=== PATIENT | male | born 1960 | race Caucasian/White ===

== ENCOUNTER 2019-05-31 09:51 | Emergency (ER) | payer SELFPAY ==
[2019-05-31] MEDS ORDERED: HYDROCODONE/APAP 10/325 TAB ONE (10:45)
[2019-05-31] MEDS ORDERED: CEFAZOLIN SODIUM 1 GM/VIAL ONE (10:45)
[2019-05-31] MEDS ORDERED: TETANUS & DIPHTHERIA TOX,ADULT 0.5 ML VIAL ONE (10:46)
[2019-05-31] MEDS ORDERED: WATER FOR INJ,STERILE 10 ML ONE (10:46)
[2019-05-31] MEDS ORDERED: LIDOCAINE 1% MPF 5 ML VIAL ONE (10:52)
--- NOTE | 2019-05-31 11:06 | RAD REPORT ---
EXAM DESCRIPTION: RAD - Wrist Left 3 View - 05/31/2019 10:58 am CLINICAL HISTORY: Animal bite, arm pain COMPARISON: None. FINDINGS: Soft tissue swelling is present over the dorsum of the wrist and distal forearm. Multiple air densities are present in the soft tissues. No foreign body is seen. Bold ulna styloid fracture is present. Linear bone density along the distal ulna metaphysis is probab ly chronic. An acute bony injury is unlikely. There is no dislocation or periosteal reaction noted. IMPRESSION: Prominent soft tissue injury over the dorsal aspect of the distal forearm and wrist. No retained foreign body. Old trauma changes are present to the ulna. An acute bone process is not suspected.
--- NOTE | 2019-05-31 12:10 | ER ---
Nurse's Notes [facility] Name: Raymond Leon Age: 58 yrs Sex: Male : 1960 Arrival Date: 05/31/2019 Time: 09:54 Bed 16 Private MD: Diagnosis: Bitten by dog;Laceration without foreign body of left wrist;Laceration without foreign body of left hand Presentation: 05/31 10:26 Presenting complaint: Patient states: Dog bite to left wrist, police have already been jl7 notified, was seen by EMS and then came here. Puncture and laceration noted to left wrist. Transition of care: patient was not received from another setting of care. Onset of symptoms was May 31, 2019 at 08:00. Risk Assessment: Do you want to hurt yourself or someone else? Patient reports no desire to harm self or others. Initial Sepsis Screen: Does the patient meet any 2 criteria? No. Patient's initial sepsis screen is negative. Does the patient have a suspected source of infection? No. Patient's initial sepsis screen is negative. Care prior to arrival: None. 10:26 Method Of Arrival: Ambulatory [facility] 10:26 Acuity: PHIL 4 jl7 Triage Assessment: 10:28 Bite description: bite sustained to dorsal aspect of left wrist and palmar aspect of jl7 left wrist is full thickness, from animal, was sustained 2-4 hours ago. by a dog, animal information: vaccination(s) is unknown. 10:28 General: Appears in no apparent distress. uncomfortable, Behavior is calm, cooperative, jl7 appropriate for age. Pain: Complains of pain in palmar aspect of left wrist and dorsal aspect of left wrist Pain currently is 6 out of 10 on a pain scale. 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 - Social history:: Smoking status: Patient uses tobacco products, smokes one pack cigarettes per day. - Ebola Screening: : No symptoms or risks identified at this time. Screenin:36 Abuse screen: Denies threats or abuse. Denies injuries from another. Nutritional aj1 screening: No deficits noted. Tuberculosis screening: No symptoms or risk factors identified. 12:31 Fall Risk None identified. aj1 Assessment: 10:36 General: Appears in no apparent distress. uncomfortable, Behavior is calm, cooperative, aj1 appropriate for age. Pain: Complains of pain in palmar aspect of left wrist and dorsal aspect of left wrist. Neuro: Level of Consciousness is awake, alert, obeys commands, Oriented to person, place, time, situation. Cardiovascular: Patient's skin is warm and dry. Respiratory: Airway is patent Respiratory effort is even, unlabored, Respiratory pattern is regular, symmetrical. GI: No signs and/or symptoms were reported involving the gastrointestinal system. : No signs and/or symptoms were reported regarding the genitourinary system. EENT: No signs and/or symptoms were reported regarding the EENT system. Derm: Skin is healthy with good turgor, Skin is pink, warm \T\ dry. normal, Wound noted palmar aspect of left wrist and dorsal aspect of left wrist Wound is multiple puncture wounds noted, patient reports dog bite. Musculoskeletal: Swelling present in palmar aspect of left wrist and dorsal aspect of left wrist. Injury Description: Bite sustained to palmar aspect of left wrist and dorsal aspect of left wrist caused by a dog, is from animal. 11:30 Reassessment: Patient appears in no apparent distress at this time. No changes from aj1 previously documented assessment. Patient and/or family updated on plan of care and expected duration. Pain level reassessed. Patient is alert, oriented x 3, equal unlabored respirations, skin warm/dry/pink. 12:30 Reassessment: Patient appears in no apparent distress at this time. No changes from aj1 previously documented assessment. Patient and/or family updated on plan of care and expected duration. Pain level reassessed. Patient is alert, oriented x 3, equal unlabored respirations, skin warm/dry/pink. Vital Signs: 10:28 BP 126 / 99; Pulse 74; Resp 16; Temp 98(O); Pulse Ox 97% on R/A; Weight 58.97 kg (R); jl7 Height 5 ft. 9 in. (175.26 cm) (R); Pain 6/10; 10:28 Body Mass Index 19.20 (58.97 kg, 175.26 cm) 7 ED Course: 09:54 Patient arrived in ED. am2 10:20 Charles Mills NP is PHCP. pm1 10:20 Juan Bradshaw MD is Attending Physician. pm1 10:27 Triage completed. jl7 10:28 Arm band placed on right wrist. jl7 10:35 Radha Mei RN is Primary Nurse. aj1 10:36 Patient has correct armband on for positive identification. Bed in low position. Call aj1 light in reach. 10:36 No provider procedures requiring assistance completed. aj1 11:00 Wrist Left (3 View) XRAY In Process Unspecified. EDMS 12:25 Wound care: to DOG BITE located on left hand was soaked in Betadine solution, Patient mh5 tolerated well. NON ADHERENT DRESSING. 12:31 Patient did not have IV access during this emergency room visit. aj1 Administered Medications: 11:18 Drug: Tetanus-Diphtheria Toxoid Adult 0.5 ml {Fire Equipment Repairer Inspector: Celsias. Exp: aj1 11/20/2020. Lot #: [id number]. } Route: IM; Site: left deltoid; 12:30 Follow up: Response: No adverse reaction aj1 11:19 Drug: [place] 10 mg-325 mg 1 tabs Route: PO; aj1 12:29 Follow up: Response: No adverse reaction; Pain is decreased; RASS: Alert and Calm (0) aj1 11:19 Drug: Ancef 1 grams Route: IM; Site: left gluteus; aj1 12:29 Follow up: Response: No adverse reaction aj1 11:45 Drug: Lidocaine (1 %) 5 ml {Note: Administered by Brian Mills NP.} Volume: 5 ml; Route: aj1 Infiltration; 12:29 Follow up: Response: No adverse reaction aj1 Outcome: 12:09 Discharge ordered by . pm1 12:52 Discharged to home ambulatory. aj1 12:52 Condition: good 12:52 Discharge instructions given to patient, Instructed on discharge instructions, follow up and referral plans. no drinking with medication, no driving heavy equipment, medication usage, Demonstrated understanding of instructions, follow-up care, medications, Prescriptions given X 2. 12:52 Patient left the ED. aj1 Signatures: Dispatcher [employer] EDKY Radha Mei, MC RN aj1 Charles Mills NP WILDLIFE BIOLOGY TECHNICIAN pm1 Valeria Nixon 5 Medardo Castellanos RN RN jl7 Yvrose Phillips am2
--- NOTE | 2019-05-31 12:10 | EDPHYS ---
Physician Documentation [facility] Name: Raymond Leon Age: 58 yrs Sex: Male : 1960 Arrival Date: 05/31/2019 Time: 09:54 Bed 16 Private MD: ED Physician Juan Bradshaw HPI: 05/31 10:36 This 58 yrs old Male presents to ER via Ambulatory with complaints of Dog pm1 Bite. 10:36 The patient was bitten on the left wrist, by a dog, for an unknown reason, at [address] Onset: The symptoms/episode began/occurred just prior to arrival. Animal information: The animal was reported to appear healthy. dog was in the possession of his punch out crew member on a leash. Police present to take report. Secondary to the bite the patient reports multiple lacerations. Associated signs and symptoms: Pertinent positives: tenderness, Pertinent negatives: numbness distal to wound, suspected foreign body. Severity of symptoms: in the emergency department the symptoms have improved. The patient has not experienced similar symptoms in the past. It is unknown whether or not the patient has recently seen a physician. 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 - Social history:: Smoking status: Patient uses tobacco products, smokes one pack cigarettes per day. - Ebola Screening: : No symptoms or risks identified at this time. ROS: 10:36 Constitutional: Negative for fever, chills, and weight loss, Cardiovascular: Negative pm1 for chest pain, palpitations, and edema, Respiratory: Negative for shortness of breath, cough, wheezing, and pleuritic chest pain, Abdomen/GI: Negative for abdominal pain, nausea, vomiting, diarrhea, and constipation, Back: Negative for injury and pain. 10:36 Neuro: Negative for headache, weakness, numbness, tingling, and seizure. 10:36 MS/extremity: Positive for injury or acute deformity, pain, of the palmar aspect of left wrist and dorsal aspect of left wrist. 10:36 Skin: Positive for laceration(s), of the palmar aspect of left wrist and dorsal aspect of left wrist. Exam: 10:36 Constitutional: This is a well developed, well nourished patient who is awake, alert, pm1 and in no acute distress. Head/Face: Normocephalic, atraumatic. Neck: Trachea midline, no thyromegaly or masses palpated, and no cervical lymphadenopathy. Supple, full range of motion without nuchal rigidity, or vertebral point tenderness. No Meningismus. Chest/axilla: Normal chest wall appearance and motion. Nontender with no deformity. No lesions are appreciated. Cardiovascular: Regular rate and rhythm with a normal S1 and S2. No gallops, murmurs, or rubs. Normal PMI, no JVD. No pulse deficits. Respiratory: Lungs have equal breath sounds bilaterally, clear to auscultation and percussion. No rales, rhonchi or wheezes noted. No increased work of breathing, no retractions or nasal flaring. Back: No spinal tenderness. No costovertebral tenderness. Full range of motion. 10:36 MS/ Extremity: Pulses equal, no cyanosis. Neurovascular intact. Full, normal range of motion. 10:36 Skin: Appearance: normal except for affected area, injury, abrasion(s), small abrasion noted, of the palmar aspect of left wrist, bite(s), linear, of the palmar aspect of left wrist and dorsal aspect of left wrist. 10:36 Neuro: Orientation: is normal, Motor: is normal, moves all fours. Vital Signs: 10:28 BP 126 / 99; Pulse 74; Resp 16; Temp 98(O); Pulse Ox 97% on R/A; Weight 58.97 kg (R); jl7 Height 5 ft. 9 in. (175.26 cm) (R); Pain 6/10; 10:28 Body Mass Index 19.20 (58.97 kg, 175.26 cm) jl7 Laceration: 12:07 Wound Repair of 2.5cm ( 1.0in ) subcutaneous laceration to dorsal aspect of left wrist. pm1 Linear shaped.. Distal neuro/vascular/tendon intact. Anesthesia: Local anesthetic administered with 3 mls of 1% lidocaine. Wound prep: Extensive cleansing with betadine with hibiclenz by me, Wound irrigation with saline by me, Wound explored extensively, Copious irrigation. Skin closed with 1 4-0 Prolene using simple sutures and sterile technique. Dressed with Neosporin, 4x4's. Patient tolerated well. MDM: 10:33 Patient medically screened. [facility] [place] 10:45 Data reviewed: vital signs. Data interpreted: Pulse oximetry: on room air is 97 %. pm1 Interpretation: normal. 12:07 Counseling: I had a detailed discussion with the patient and/or guardian regarding: the pm1 historical points, exam findings, and any diagnostic results supporting the discharge/admit diagnosis, radiology results, the need for outpatient follow up, to return to the emergency department if symptoms worsen or persist or if there are any questions or concerns that arise at home. 12:07 ED course: One single suture placed on large laceration to dorsal aspect of left wrist pm1 to tack center together but allows drainage on both sides. The 3 other 1 cm lacerations are small and shallow and left open to allow drainage. 05/31 10:36 Order name: Wrist Left (3 View) XRAY; Complete Time: 11:10 pm1 05/31 10:36 Order name: Prolene, Sutures; Complete Time: 10:53 pm1 05/31 10:36 Order name: Gloves, Sterile; Complete Time: 10:53 pm1 05/31 10:36 Order name: Setup Suture Tray; Complete Time: 10:53 pm1 05/31 10:41 Order name: Wound Care; Complete Time: 11:19 pm1 Administered Medications: 11:18 Drug: Tetanus-Diphtheria Toxoid Adult 0.5 ml {Project Engineer: Wynlink. Exp: aj1 11/20/2020. Lot #: [id number]. } Route: IM; Site: left deltoid; 12:30 Follow up: Response: No adverse reaction [facility] 11:19 Drug: [place] 10 mg-325 mg 1 tabs Route: PO; 1 12:29 Follow up: Response: No adverse reaction; Pain is decreased; RASS: Alert and Calm (0) [facility] 11:19 Drug: Ancef 1 grams Route: IM; Site: left gluteus; [facility] 12:29 Follow up: Response: No adverse reaction [facility] 11:45 Drug: Lidocaine (1 %) 5 ml {Note: Administered by Brian Mills NP.} Volume: 5 ml; Route: aj1 Infiltration; 12:29 Follow up: Response: No adverse reaction aj1 Disposition: 06/01 10:28 Co-signature as Attending Physician, Juan Bradshaw MD I agree with the assessment and amish plan of care. Disposition: 05/31/19 12:09 Discharged to Home. Impression: Laceration without foreign body of left wrist, Bitten by dog, Laceration without foreign body of left hand. - Condition is Stable. - Discharge Instructions: Laceration Care, Adult, Nonsutured Laceration Care, Animal Bite. - Prescriptions for Augmentin 875- 125 mg Oral Tablet - take 1 tablet by ORAL route every 12 hours for 10 days; 20 tablet. Tylenol- Codeine #3 300-30 mg Oral Tablet - take 2 tablets by ORAL route every 6 hours As needed; 20 tablet. - Medication Reconciliation Form, Thank You Letter, Antibiotic Education, Prescription Opioid Use form. - Follow up: Emergency Department; When: As needed; Reason: Worsening of condition. Follow up: Private Physician; When: 2 - 3 days; Reason: Wound Recheck, Recheck today's complaints, Continuance of care, Re-evaluation by your physician. - Problem is new. - Symptoms have improved. Signatures: Dispatcher [employer] EDMS Radha Mei RN RN aj1 Juan Bradshaw MD MD cha Marinas, Patrick, MELTING FURNACE SKIMMER MELTING FURNACE SKIMMER pm1 Medardo Castellanos RN RN jl7 Corrections: (The following items were deleted from the chart) 05/31 12:52 12:09 05/31/2019 12:09 Discharged to Home. Impression: Laceration without foreign body aj1 of left wristBitten by dog; Laceration without foreign body of left hand. Condition is Stable. Forms are Medication Reconciliation Form, Thank You Letter, Antibiotic Education, Prescription Opioid Use. Follow up: Emergency Department; When: As needed; Reason: Worsening of condition. Follow up: Private Physician; When: 2 - 3 days; Reason: Wound Recheck, Recheck today's complaints, Continuance of care, Re-evaluation by your physician. Problem is new. Symptoms have improved. pm1
[2019-05-31 12:59] VITALS: BP 126/99; TEMP 98; O2SAT 97
== END 2019-05-31 12:52 | disposition home or self-care (01) ==
LOC: ER 09:51
PROC: 0JQH0ZZ Repair Left Lower Arm Subcutaneous Tissue and Fascia, Open Approach (ICD-10-PCS; principal; 2019-05-31)
DX: S61.512A Laceration without foreign body of left wrist, initial encounter (principal); S61.412A Laceration without foreign body of left hand, initial encounter; W54.0XXA Bitten by dog, initial encounter; Y93.9 Activity, unspecified; Y92.039 Unspecified place in apartment as the place of occurrence of the external cause; Z23 Encounter for immunization; Z85.21 Personal history of malignant neoplasm of larynx; F17.210 Nicotine dependence, cigarettes, uncomplicated
CPT/HCPCS: 90471; 90714; 96372; 99284; J0690